=== PATIENT | female | born 1980 | race African-American/Black ===

== ENCOUNTER 2018-08-30 01:15 | Emergency (ER) | payer OTHER ==
--- NOTE | 2018-08-30 01:36 | PDOC ---
History of Present Illness - General History Source: Patient Exam Limitations: No Limitations - History of Present Illness Initial Comments: 08/30/18 02:06 This is a 37 year old obese female with a history with a history of left foot cellulitis, left foot fracture, who presents with worsening chronic left foot pain/weakness, left calf/ankle swelling and numbness for the past few weeks. She denies fever, chills, chest pain, sob, abdominal pain, recent injury, travel. 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 Denies history of blood clots. States she was treated a year ago for left foot fracture with cast and boot. She has seen orthopedic and had MRI on foot without any finding. PMHx: stated above Surgical : none Social history; occasional drinking; negative tobacco; +marijuana Allergies:none <Tamiko Neil - Last Filed: 08/30/18 04:31> <Ileana Brasher - Last Filed: 08/30/18 04:54> - General Stated Complaint: BILATERAL LEG NUMBNESS Time Seen by Provider: 08/30/18 01:35 Past History - Suicide/Smoking/Psychosocial Hx Smoking Status: No Smoking History: Never smoked Have you smoked in the past 12 months: No Number of Cigarettes Smoked Daily: 0 Hx Alcohol Use: No Drug/Substance Use Hx: No Substance Use Type: None <Tamiko Neil - Last Filed: 08/30/18 04:31> <Ileana Brasher - Last Filed: 08/30/18 04:54> - Past Medical History Allergies/Adverse Reactions: Allergies Allergy/AdvReac Type Severity Reaction Status Date / Time No Known Allergies Allergy Verified 08/30/18 01:41 Home Medications: Ambulatory Orders Cephalexin [Keflex] 500 mg PO QID #40 capsule 09/25/15 Methylprednisolone [Medrol Dose Chaz] 4 mg PO ASDIR #21 tablet 09/25/15 Review of Systems - Review of Systems Able to Perform ROS?: Yes Constitutional: No: Chills, Fever, Night Sweats, Weakness HEENTM: No: Eye Pain, Blurred Vision Respiratory: No: Cough, Orthopnea, Shortness of Breath, Wheezing Cardiac (ROS): No: Chest Pain, Edema, Irregular Heart Rate ABD/GI: No: Abdominal Distended, Abd. Pain w/ defecation, Nausea, Vomiting : No: Dysuria, Discharge Musculoskeletal: Yes: Back Pain, Joint Pain, Muscle Weakness Integumentary: No: Bruising, Change in Color Neurological: Yes: Headache, Weakness, Unsteady Gait (left LE numbess, pain). No: Numbness, Seizure <Tamiko Neil - Last Filed: 08/30/18 04:31> *Physical Exam - Physical Exam General Appearance: Yes: Appropriately Dressed, Obese Respiratory/Chest: positive: Lungs Clear, Normal Breath Sounds Cardiovascular: positive: Regular Rhythm, Regular Rate, S1, S2 Vascular Pulses: Dorsalis-Pedis (R): 2+, Doralis-Pedis (L): 2+ Gastrointestinal/Abdominal: negative: Tender Musculoskeletal: positive: Other (left lumbar back pain to palpation). negative : CVA Tenderness, Muscle Spasm, Vertebral Tenderness Extremity: positive: Pedal Edema, Swelling (left LE), Calf Tenderness Integumentary: negative: Cyanotic, Erythema Neurologic: positive: Fully Oriented, Normal Mood/Affect, Motor Strength 5/5 ( exept Left plantar/doriflexion decreased ROM; strength 3/5 ), Numbness, Sensory Deficit (left miller; decreased sensation ) <Tamiko Neil - Last Filed: 08/30/18 04:31> - Vital Signs Last Vital Signs Temp Pulse Resp BP Pulse Ox 98.2 F 76 18 145/61 100 08/30/18 01:15 08/30/18 01:15 08/30/18 01:15 08/30/18 01:15 08/30/18 01:15 <Ileana Brasher - Last Filed: 08/30/18 04:54> ED Treatment Course - LABORATORY CBC & Chemistry Diagram: 08/30/18 02:17 08/30/18 02:17 <Tamiko Neil - Last Filed: 08/30/18 04:31> - LABORATORY CBC & Chemistry Diagram: 08/30/18 02:17 08/30/18 02:17 - ADDITIONAL ORDERS Additional order review: Laboratory Results 08/30/18 08/30/18 08/30/18 02:17 02:17 02:17 D-Dimer 389 Sodium 140 Potassium 3.6 Chloride 109 H Carbon Dioxide 26 Anion Gap 6 L BUN 12 Creatinine 0.9 Creat Clearance w eGFR > 60 Random Glucose 98 Calcium 8.2 L C-Reactive Protein 0.4 H Beta HCG, Quant < 1.0 08/30/18 02:17 RBC 3.70 MCV 90.3 MCHC 33.2 RDW 13.8 MPV 8.9 Neutrophils % 55.5 Lymphocytes % 27.2 D Monocytes % 9.8 Eosinophils % 6.5 H D Basophils % 1.0 - Medications Given in the ED: ED Medications Discontinued Medications Generic Name Dose Route Start Last Admin Trade Name Marj PRN Reason Stop Dose Admin Acetaminophen 1,000 mg 08/30/18 02:01 08/30/18 02:26 Ofirmev Injection - IVPB 08/30/18 02:02 1,000 mg ONCE ONE Administration <Ileana Brasher - Last Filed: 08/30/18 04:54> Medical Decision Making - Medical Decision Making 08/30/18 02:22 This is a 37 year old female with a history of left foot cellulitis, left foot fracture (unknown where), who presents with left calf/ ankle swelling, numbness for a 2-3 weeks, along with worsening left foot pain and weakness. R/o acute dvt. Possible chronic pain/ arthritic/degenerative changes due to body habitus, job demand on foot. R/o acute inflammatory process and acute fracture. -cbc, bmp, esr, crp, d dimer -left foot and ackle xray -left LE venous doppler -IV tyelenol 08/30/18 03:44 -D Dimer negative; -previous foot/toe xrays were negative for fracture; +degenerative changes; poossible subluxation 08/30/18 04:31 -degenerative joint disease due to obesity -d/c home pending xrays; -labs wnl, dimer negative -follow up with ortho/primary; <Tamiko Neil - Last Filed: 08/30/18 04:31> *DC/Admit/Observation/Transfer - Discharge Dispostion Decision to Admit order: No <Tamiko Neil - Last Filed: 08/30/18 04:31> <Ileana Brasher - Last Filed: 08/30/18 04:54> Diagnosis at time of Disposition: Degenerative joint disease Qualifiers: Osteoarthritis location: foot - Discharge Dispostion Disposition: HOME Condition at time of disposition: Fair - Referrals Referrals: Lion Varma MD [Primary Care Provider] - Travis García MD [Staff Physician] - - Patient Instructions Additional Instructions: MsJoanie Perez, you have degenerative changes of the joints in your foot, this is most likely due to your weight. We have provided you with an orthopedist to follow up with. Please follow up with your primary as well. IF you experience any worsening of symptoms, including worsening calf swelling, pain, foot drop, in ability to ambulate, please return to the emergency room. - Post Discharge Activity Forms/Work/School Notes: Back to Work
--- NOTE | 2018-08-30 01:49 | PDOC ---
Attending Attestation - HPI HPI: This is a 37 year old female with a history of left foot cellulitis, left foot fracture, who presents with worsening chronic left foot pain/weakness, left calf /ankle swelling and numbness for the past few weeks. She states that her LLE " feels like it is ". She denies fever, chills, chest pain, sob, abdominal pain, recent injury, or travel. 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 Denies history of blood clots. States she was treated a year ago for left foot fracture with cast and boot. She has seen orthopedic and had MRI on foot without any finding. Surgical : none Social history; occasional drinking; negative tobacco; +marijuana Allergies:none <Cherelle Way - Last Filed: 08/30/18 02:21> - Resident Resident Name: Tamiko Neil - ED Attending Attestation I have performed the following: I have examined & evaluated the patient, The case was reviewed & discussed with the resident, I agree w/resident's findings & plan - Physicial Exam PE: 08/31/18 23:11 Agree with resident exam - Medical Decision Making 08/30/18 02:04 Pt comes with left foot swelling and leg swelling and chronic left ankle pain 08/30/18 04:54 Patient Name: RANGEL LANCE THIS IS A PRELIMINARY REPORT FROM [facility] DATE OF SERVICE: 2018-08-30 03:46:07 IMAGES: 5 EXAM: ANKLE \\T\\ FOOT-LEFT* HISTORY: Pain and swelling COMPARISON: None. FINDINGS: X-ray left ankle: No fracture or dislocation. No joint effusion. Generalized soft tissue edema is noted. There are mild degenerative changes of the midfoot. X-ray left foot: There is no fracture or degenerative changes of the midfoot. IMPRESSION: Mild degenerative changes in general soft tissue edema. 08/31/18 23:11 Diet; exercise; april wraps and follow with PMD. Pt has mild DJD <Ileana Brasher - Last Filed: 08/31/18 23:11>
[2018-08-30 01:59] VITALS: BP 145/61; PULSE 76; TEMP 98.2; BMI 54.9
[2018-08-30] MEDS ORDERED: ACETAMINOPHEN 1000 MG/100 ML VIAL (NON FORMULARY) IVPB ONE (02:01)
[2018-08-30] MEDS ORDERED: ACETAMINOPHEN INJECTION 100 ML IVPB ONE (02:21)
[2018-08-30 02:29] LABS: EOS % 6.5 % (0-4.5); HEMATOCRIT 33.4 % (32.4-45.2); HEMOGLOBIN 11.1 GM/dL (10.7-15.3); LYMPH % 27.2 % (8-40); MCHC 33.2 g/dl (32.0-36.0); MEAN CELL VOLUME 90.3 fl (80-96); MEAN PLT VOLUME 8.9 fl (7.5-11.1); MONO % 9.8 % (3.8-10.2); NEUT % 55.5 % (42.8-82.8); PLATELET COUNT 210 K/MM3 (134-434); RDW 13.8 % (11.6-15.6); WHITE BLOOD COUNT 3.1 K/mm3 (4.0-10.0)
[2018-08-30 03:23] LABS: ANION GAP 6 MMOL/L (8-16); BLOOD UREA NITROGEN 12 mg/dL (7-18); CALCIUM 8.2 mg/dL (8.5-10.1); CHLORIDE 109 mmol/L (98-107); CO2 26 mmol/L (21-32); CREATININE 0.9 mg/dL (0.55-1.3); GLUCOSE,RANDOM 98 mg/dL (74-106); POTASSIUM 3.6 mmol/L (3.5-5.1); SODIUM 140 mmol/L (136-145)
[2018-08-30 03:54] LABS: ERYTHROCYTE SEDIMENTATION RATE 24 mm/hr (0-20)
--- NOTE | 2018-08-30 08:38 | PDOC ---
Patient Follow-up (Call Back) - Post ED Follow - Up Condition at time of discharge: Fair Disposition at time of original discharge: HOME Reason for Call Back: Radiology (Per radiology, calcaneal lucency on xray, needs further eval Per records, pt known to have chronic L foot pain, f/u with ortho and had recent MRI foot which was unremarkabke Was dc and told to f/u with ortho No need to call back at this time)
== END 2018-08-30 05:04 | disposition home or self-care (01) ==
LOC: JER 01:15
PROC: 3E033NZ Introduction of Analgesics, Hypnotics, Sedatives into Peripheral Vein, Percutaneous Approach (ICD-10-PCS; principal; 2018-08-30)
DX: M19.072 Primary osteoarthritis, left ankle and foot (principal); S92.002A Unspecified fracture of left calcaneus, initial encounter for closed fracture; X58.XXXA Exposure to other specified factors, initial encounter; Y93.89 Activity, other specified; Y92.89 Other specified places as the place of occurrence of the external cause; Y99.8 Other external cause status; R26.81 Unsteadiness on feet; R51 Headache; M54.5 Low back pain; E66.9 Obesity, unspecified; Z68.43 Body mass index [BMI] 50.0-59.9, adult
CPT/HCPCS: 36415; 73610-TC-LT-FY; 73630-TC-LT; 80048; 84702; 85025; 85379; 85651; 86140; 96374; 99282-25; J0131

== ENCOUNTER 2018-09-10 15:54 | Emergency (ER) | payer OTHER ==
[2018-09-10 16:00] VITALS: BP 145/69; PULSE 82; TEMP 98.2; BMI 54.9
--- NOTE | 2018-09-10 16:00 | PDOC ---
Rapid Medical Evaluation Time Seen by Provider: 09/10/18 15:56 Medical Evaluation: Allergies Allergy/AdvReac Type Severity Reaction Status Date / Time No Known Allergies Allergy Verified 08/30/18 01:41 09/10/18 15:59 I have performed a brief in-person evaluation of this patient. The patient presents with a chief complaint of: left foot pain for "a while" Pertinent physical exam findings: TTP left lateral foot. Refusing further exam I have ordered the following: urine The patient will proceed to the ED for further evaluation. Discharge Disposition - Diagnosis Foot pain, left - Referrals - Patient Instructions - Post Discharge Activity
[2018-09-10] MEDS ORDERED: KETOROLAC TROMETHAMINE 60 MG/2 ML VIAL IM ONE (17:53)
[2018-09-10] MEDS ORDERED: KETOROLAC TROMETHAMINE 60 MG/2 ML VIAL ONE (17:54)
--- NOTE | 2018-09-10 18:23 | PDOC ---
History of Present Illness - General Chief Complaint: Pain, Acute Stated Complaint: LEG PAIN Time Seen by Provider: 09/10/18 15:56 - History of Present Illness Initial Comments: 09/10/18 18:20 37-year-old female with no comorbidities presents for evaluation of left foot and leg pain. She has no systemic symptoms no loss of bowel bladder function she does have associated lower back pain. Past History - Past Medical History Allergies/Adverse Reactions: Allergies Allergy/AdvReac Type Severity Reaction Status Date / Time No Known Allergies Allergy Verified 08/30/18 01:41 Home Medications: Ambulatory Orders Cyclobenzaprine HCl [Flexeril 10 mg] 10 mg PO HS PRN #10 tablet 09/10/18 Methylprednisolone [Medrol Dose Chaz] 4 mg PO ASDIR #21 tablet 09/10/18 Anemia: No Asthma: No Cancer: No Cardiac Disorders: No CVA: No COPD: No - Immunization History Immunization Up to Date: Yes - Suicide/Smoking/Psychosocial Hx Smoking Status: No Smoking History: Never smoked Have you smoked in the past 12 months: No Number of Cigarettes Smoked Daily: 0 Hx Alcohol Use: No Drug/Substance Use Hx: No Substance Use Type: None Review of Systems - Review of Systems Musculoskeletal: Yes: See HPI, Back Pain, Joint Pain *Physical Exam - Vital Signs Last Vital Signs Temp Pulse Resp BP Pulse Ox 98.2 F 82 18 145/69 99 09/10/18 15:56 09/10/18 15:56 09/10/18 15:56 09/10/18 15:56 09/10/18 15:56 - Physical Exam Comments: 09/10/18 18:21 Morbidly obese female in no acute distress. HEAD: NC/AT EYES: Conjuntiva clear Ears: Canals and TM's normal NOSE: No d/c THROAT: Moist mucous membrances, oral pharanx clear, uvula midline NECK: Supple without adenopathy CARDIAC: S1 S2 LUNGS: CTA Full and Equal breath sounds ABDOMEN: Soft NT ND MS: Full ROM in all joints without edema NEUROLOGIC: No gross sensory or motor deficits, NVID SKIN: Normal color and temperature no lesions or rashes Lumbar spine skin color temperature are normal range of motion is decreased mildly positive straight leg raise on the left 5 out of 5 strength bilateral lower extremities no gross sensorimotor deficits thighs and calves are soft and nontender she's neurovascularly intact hypersensitive on the dorsum of the left foot Moderate Sedation - Procedure Monitoring Vital Signs: Procedure Monitoring Vital Signs Temperature 98.2 F 09/10/18 15:56 Pulse Rate 82 09/10/18 15:56 Respiratory Rate 18 09/10/18 15:56 Blood Pressure 145/69 09/10/18 15:56 O2 Sat by Pulse Oximetry (%) 99 09/10/18 15:56 ED Treatment Course - Medications Given in the ED: ED Medications Discontinued Medications Generic Name Dose Route Start Last Admin Trade Name Freq PRN Reason Stop Dose Admin Ketorolac Tromethamine 60 mg 09/10/18 17:53 09/10/18 18:02 Toradol Injection - IM 09/10/18 17:54 60 mg ONCE ONE Administration *DC/Admit/Observation/Transfer Diagnosis at time of Disposition: Lumbar radiculopathy Diagnosis at time of Disposition: (Ruled Out): Foot pain, left - Discharge Dispostion Disposition: HOME Condition at time of disposition: Stable Decision to Admit order: No - Prescriptions Prescriptions: Cyclobenzaprine HCl [Flexeril 10 mg] 10 mg PO HS PRN #10 tablet PRN Reason: Muscle Spasms Methylprednisolone [Medrol Dose Chaz] 4 mg PO ASDIR #21 tablet - Referrals Referrals: Lion Varma MD [Primary Care Provider] - Marshall Gibson MD [Staff Physician] - - Patient Instructions Printed Discharge Instructions: Lumbar Radiculopathy, DI for Lumbar Radiculopathy Additional Instructions: Please take the medication as directed. Return to the emergency room should symptoms worsen or go unresolved. Please follow-up with spine surgery in 2-3 days for further evaluation and treatment options. - Post Discharge Activity Forms/Work/School Notes: Back to Work
== END 2018-09-10 18:35 | disposition home or self-care (01) ==
LOC: JERFT 15:54 → JER 15:54 → JERFT 18:35
PROC: 3E0233Z Introduction of Anti-inflammatory into Muscle, Percutaneous Approach (ICD-10-PCS; principal; 2018-09-10)
DX: M79.672 Pain in left foot (principal); M54.16 Radiculopathy, lumbar region
CPT/HCPCS: 96372; 99281-25

== ENCOUNTER → 2021-06-30 | Day surgery (SDC) | payer OTHER ==
[2021-06-27 12:05] VITALS: BMI 61.0
[~2021-06-30] MED LIST: ACETAMINOPHEN 1000 MG/100 ML VIAL (NON FORMULARY) IVPB PRN; BUPIVACAINE HCL/PF 2.5 MG/ML - 30 ML VIAL IJ ONE; DEXAMETHASONE SOD PHOSPHATE 4 MG/1 ML VIAL ONE; LACTATED RINGERS SOLUTION 1,000 ML IV SCH; MIDAZOLAM HCL 2 MG/2 ML SINGLE DOSE VIAL ONE; ONDANSETRON 4 MG/2 ML VIAL IVPUSH ONE; ONDANSETRON 4 MG/2 ML VIAL IVPUSH PRN; ONDANSETRON 4 MG/2 ML VIAL ONE; PROPOFOL 20 ML ONE; SUCCINYLCHOLINE CHLORIDE 200 MG/10 ML SYRINGE ONE; oxyCODONE HCL 5 MG TABLET PO PRN
[2021-06-30 10:19] VITALS: BP 150/96; PULSE 63; TEMP 97.1
== END | disposition home or self-care (01) ==
LOC: FASU 06:10
PROVIDERS: ATTEND Orthopaedic Surgery
PROC: 0SBD4ZZ Excision of Left Knee Joint, Percutaneous Endoscopic Approach (ICD-10-PCS; 2021-06-30)
PROC: 0SBD4ZZ Excision of Left Knee Joint, Percutaneous Endoscopic Approach (ICD-10-PCS; principal; 2021-06-30 08:20)
DX: S83.242A Other tear of medial meniscus, current injury, left knee, initial encounter (principal); S83.282A Other tear of lateral meniscus, current injury, left knee, initial encounter; S83.8X2A Sprain of other specified parts of left knee, initial encounter; M65.862 Other synovitis and tenosynovitis, left lower leg; X58.XXXA Exposure to other specified factors, initial encounter; Y93.9 Activity, unspecified; Y92.9 Unspecified place or not applicable
CPT/HCPCS: 81025; 88304-TC; 94760; J0131

== ENCOUNTER 2023-02-08 06:29 | Day surgery (SDC) | payer OTHER ==
[2023-02-04 15:25] VITALS: BMI 35.6
[2023-02-08] MEDS ORDERED: BUPIVACAINE HCL/PF 2.5 MG/ML - 30 ML VIAL IJ ONE (07:22)
[2023-02-08] MEDS ORDERED: PROPOFOL 40 ML ONE (08:37)
[2023-02-08] MEDS ORDERED: SUCCINYLCHOLINE CHLORIDE 200 MG/10 ML SYRINGE ONE (08:37)
[2023-02-08] MEDS ORDERED: BUPIVACAINE HCL/PF 0.25% (2.5MG/ML) 10 ML VIAL IJ ONE (09:20)
[2023-02-08] MEDS ORDERED: ONDANSETRON 4 MG/2 ML VIAL ONE (09:29)
[2023-02-08] MEDS ORDERED: KETOROLAC TROMETHAMINE 30 MG/1 ML VIAL ONE (09:29)
[2023-02-08] MEDS ORDERED: ceFAZolin SODIUM 1 GM VIAL ONE ×2 (09:29)
[2023-02-08] MEDS ORDERED: oxyCODONE HCL 5 MG TABLET PO PRN (09:33)
[2023-02-08] MEDS ORDERED: FENTANYL CITRATE/PF 50 MCG/ML VIAL ONE ×4 (09:36→10:02)
[2023-02-08] MEDS ORDERED: ACETAMINOPHEN INJECTION 100 ML IVPB ONE (09:41)
[2023-02-08] MEDS: ONDANSETRON 4 MG/2 ML VIAL IVPUSH PRN ×2 (09:45→10:44)
[2023-02-08 10:40] VITALS: RESP 16
[2023-02-08 10:43] VITALS: TEMP 97.6
[2023-02-08] MEDS ORDERED: ACETAMINOPHEN 1000 MG/100 ML BAG IVPB ONE (10:58)
[2023-02-08] MEDS ORDERED: PROMETHAZINE HCL 25 MG/1 ML VIAL ONE (11:09)
[2023-02-08 12:11] VITALS: BP 140/69; PULSE 68
== END 2023-02-08 12:55 | disposition home or self-care (01) ==
LOC: FASU 06:29
PROVIDERS: ATTEND Orthopaedic Surgery
PROC: 0SBC4ZZ Excision of Right Knee Joint, Percutaneous Endoscopic Approach (ICD-10-PCS; 2023-02-08)
PROC: 0SBC4ZZ Excision of Right Knee Joint, Percutaneous Endoscopic Approach (ICD-10-PCS; principal; 2023-02-08 08:58)
DX: S83.241A Other tear of medial meniscus, current injury, right knee, initial encounter (principal); S83.281A Other tear of lateral meniscus, current injury, right knee, initial encounter; S83.8X1A Sprain of other specified parts of right knee, initial encounter; M65.861 Other synovitis and tenosynovitis, right lower leg; X58.XXXA Exposure to other specified factors, initial encounter; Y93.9 Activity, unspecified; Y92.9 Unspecified place or not applicable
CPT/HCPCS: 81025; 94760